=== PATIENT | male | born 1965 | race Caucasian/White ===

== ENCOUNTER → 2017-01-27 | Outpatient (CLI) | payer MEDICAID, OTHER | LOC: FIMAGING 13:38 | PROVIDERS: ATTEND Internal Medicine | DX: E83.52 Hypercalcemia (principal) ==

== ENCOUNTER → 2017-01-31 | Outpatient (CLI) | payer MEDICAID, OTHER | LOC: FIMAGING 10:51 | PROVIDERS: ATTEND Internal Medicine | DX: N18.3 Chronic kidney disease, stage 3 (moderate) (principal); I10 Essential (primary) hypertension ==

== ENCOUNTER → 2017-10-29 | Outpatient (CLI) | payer MEDICAID | LOC: FIMAGING 15:13 | PROVIDERS: ATTEND Nurse Practitioner Family | DX: I25.10 Atherosclerotic heart disease of native coronary artery without angina pectoris (principal); R60.9 Edema, unspecified; R07.9 Chest pain, unspecified ==

== ENCOUNTER 2018-07-09 09:18 | Day surgery (SDC) | payer MEDICAID ==
[2018-07-09] MEDS ORDERED: DIAZEPAM 5 MG TAB PO ONE (09:21)
[2018-07-09] MEDS ORDERED: ASPIRIN EC 325 MG TAB PO ONE (09:21)
[2018-07-09] MEDS ORDERED: diphenhydrAMINE 25 MG CAP PO ONE (09:21)
[2018-07-09] MEDS ORDERED: FAMOTIDINE 20 MG TAB PO ONE (09:21)
[2018-07-09] MEDS ORDERED: NS 1,000 ML IV ONE (09:21)
[2018-07-09 10:08] LABS: PLATELET COUNT 178 10^3/uL (150-400)
--- NOTE | 2018-07-09 10:15 | PDHPUP ---
History & Physical Update H&P update statement: This history and physical update is based on an assessment of the patient which was completed after admission or registration (within 24 hours), but prior to the surgery/procedure. H&P update: H&P reviewed & patient examined, no change in patient's condition since H&P completed
--- NOTE | 2018-07-09 10:15 | PDPROPOC ---
Sedation Plan of Care Sedation Plan of Care: vital signs stable, mental status noted, patient educated of risks, benefits, alternatives, patient can tolerate sedation ASA Classification: ASA 3 Planned drugs: fentanyl, midazolam Mallampati Score: Class 2 Mallampati Reference Image: Patient passed 3-3-2 rule?: Yes
[2018-07-09 10:18] LABS: INR 0.95 (0.83-1.16); PROTIME(PATIENT) 12.3 SEC (12.0-15.0)
[2018-07-09] MEDS ORDERED: LIDOCAINE 1% 300 MG/30 ML SDV ONE (11:44)
[2018-07-09] MEDS ORDERED: HEPARIN 10,000 UNIT/10 ML MDV (1,000 UNIT/ML) ONE (11:45)
[2018-07-09] MEDS ORDERED: VERAPAMIL 5 MG/2 ML VIAL ONE (11:45)
[2018-07-09] MEDS ORDERED: fentaNYL 100 MCG/2 ML INJ ONE ×2 (11:45→12:28)
[2018-07-09] MEDS ORDERED: IOPAMIDOL (ISOVUE-370) 150 ML BTL IV ONE (11:45)
[2018-07-09] MEDS ORDERED: MIDAZOLAM 2 MG/2 ML VIAL ONE ×2 (11:45→12:28)
--- NOTE | 2018-07-09 12:30 | PDDXCAT ---
Diagnostic Cath Note - . Date: 07/09/18 Bank Appraiser: Elham Chute Loader: Elham Indication: other (intermediate risk stress test) - Procedure Access: left wrist Procedure: left heart catheterization, coronary angiography, left ventriculogram , right heart catheterization - Materials Left Heart Cath size: 5F Left Heart Cath materials: JL3.5, JR4.0, pigtail - Findings-Left Heart Catheterization LM: The left main is 4mm in size and bifurcates into a LAD and circumflex system. There is GENTRY III flow throughout. LAD: The left anterior descending is 3mm in size. The proximal segment of the LAD has been previously stented. There is a small marginal branch which has a subtotal occlusion that also arises from the stented segment of the LAD which is collateralized from the right side. There is GENTRY II flow. There is a 80% of the ostium of the diagonal vessel, which comes off from the stented segment of the LAD. The diagonal vessel is not a candidate for intervention because of the angle that it arises from the LAD proper. This would also require bifurcation stenting back into the LAD. LCX: The left circumflex is 2.75mm in size. There is no evidence of flow- limiting obstruction. There is GENTRY III flow. RCA: The right coronary artery is 3mm in size and dominant. There ar emultiple overlapping stents in the RCA from the proximal segment to the level below the acute marginal takeoff. The vessel has collateral circulation from the right to the left. There is GENTRY III flow. EDP: 17mmHg LVEF: 55% Wall motion: On the LV gram there is normal LV systolic function. The EF is 55% . There is mid inferior wall and distal anterior wall of the apex is hypokinetic. 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 The visualized portion of the thoracic aortic valve reveals three sinuses of valsalva most consistent with a trileaflet valve. There is no gradient on pullback across the aortic valve. THere is no evidence of jodie dissection or aneurysm formation of the thoracic aorta. - Findings-Right Heart Catheterization RA: 14; SAT 80% RV: 40/10/11 PA: 42/15/26; SAT 79.7% PAOP: AO: 121/68/84; SAT 97% CO: 7.13 CI: 3.45 Complications: NONE Estimated blood loss: <50ml Closure method: TR Band Assessment: The patient has flow-limiting coronary artery disease involving 2 diagonal branches both of which are small and would compromise the proximal LAD if intervened upon. One diagonal is less than 1 mm in size with 100% obstruction and is collateralized from the RCA. The other is the principal diagonal and is 2 mm in size and has an ostial 80% obstruction. This disease will require medical management. The right coronary artery and proximal LAD have both been previously stented. Both stents are widely patent and without significant in stent restenosis. The patient does not have pulmonary hypertension on right cath or evidence of a left or right to left shunt. The patient is not a candidate for coronayr intervention at this time. Plan: The patient most likely has dyspnea that is multi factorial and related to cardiomyopathy, sleep apnea, overweight, coronary disease and deconditioning. Medical management to reduce the risk of speed of progression of CAD is important. Intervention: NONE
[2018-07-09] MEDS ORDERED: NITROGLYCERIN 0.4 MG BTL SL PRN (13:21)
[2018-07-09] MEDS ORDERED: ATROPINE SULFATE 1 MG/10 ML SYR IVP PRN (13:21)
--- NOTE | 2018-07-15 11:13 | CPEKG ---
Test Reason : OPEN Blood Pressure : / mmHG Vent. Rate : 066 BPM Atrial Rate : 066 BPM P-R Int : 162 ms QRS Dur : 113 ms QT Int : 447 ms P-R-T Axes : 062 068 011 degrees QTc Int : 469 ms Sinus rhythm Ventricular premature complex Low voltage with right axis deviation Confirmed by Kaleb Perez ([id number]) on 07/15/2018 11:12:51 AM Referred By: Severiano Lizarraga Confirmed By:Kaleb Perez
== END 2018-07-09 16:04 | disposition home or self-care (01) ==
LOC: FCATH 09:18
PROVIDERS: ATTEND Internal Medicine Cardiovascular Disease
DX: I25.119 Atherosclerotic heart disease of native coronary artery with unspecified angina pectoris (principal); I50.9 Heart failure, unspecified; I11.0 Hypertensive heart disease with heart failure; E78.5 Hyperlipidemia, unspecified; Z95.5 Presence of coronary angioplasty implant and graft; Z21 Asymptomatic human immunodeficiency virus [HIV] infection status; Z87.891 Personal history of nicotine dependence
CPT/HCPCS: J1644; J2250; J3010; Q9967